=== PATIENT | male | born 1975 | race Caucasian/White ===

== ENCOUNTER 2017-12-13 06:27 | Emergency (ER) | payer BC ==
[2017-12-13 06:34] VITALS: BP 128/91
[2017-12-13] MEDS ORDERED: Proparacaine 0.5% Ophth Soln 15 ML Bottle EYERT ONE (07:12)
--- NOTE | 2017-12-13 07:34 | EDM.PDOC ---
ED HPI GENERAL MEDICAL PROBLEM - General Chief Complaint: Eye Problems Stated Complaint: eye problem Time Seen by Provider: 12/13/17 06:32 Source of Information: Reports: Patient, RN Notes Reviewed - History of Present Illness INITIAL COMMENTS - FREE TEXT/NARRATIVE: onset of R severe eye discomfort last evening about 12 hours ago, continued severe pain during the night and this morning, a lot of tearing but no crusting or drainge. He does wear contacts. 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 Treatments MEDICAL ORDERLY: Reports: Other (see below) Other Treatments MEDICAL ORDERLY: eye flushes Right Eye Pain Score (Numeric/FACES): 5 - Related Data Allergies Allergy/AdvReac Type Severity Reaction Status Date / Time Penicillins Allergy Cannot Verified 12/13/17 06:35 Remember Home Meds: Home Meds . [No Known Home Meds] 07/26/15 [History] Past Medical History - Past Health History Medical/Surgical History: Denies Medical/Surgical History Social & Family History - Family History Family Medical History: Noncontributory - Tobacco Use Smoking Status *Q: Current Every Day Smoker Years of Tobacco use: 15 Packs/Tins Daily: 1 - Recreational Drug Use Recreational Drug Use: No ED ROS GENERAL - Review of Systems Review Of Systems: See Below Constitutional: Denies: Fever, Chills HEENT: Reports: Contact Lenses, Eye Pain (Right-sided), Other (Right conjunctival injection, pain, foreign body sensation) Respiratory: Denies: Shortness of Breath Cardiovascular: Denies: Chest Pain GI/Abdominal: Denies: Abdominal Pain, Nausea, Vomiting Musculoskeletal: Reports: No Symptoms Skin: Reports: No Symptoms Neurological: Reports: No Symptoms. Denies: Headache ED EXAM GENERAL W FULL EYE - Physical Exam Exam: See Below General Appearance: Alert, Mild Distress Conjunctiva & Sclera: Right: Injected Cornea Exam: Right: Corneal Ulcer (Small left upper area of right cornea), Bilateral: Other (Cornea otherwise clear) Head: No: Facial Swelling Neck: Supple Respiratory/Chest: No Respiratory Distress Neurological: Alert, Oriented, No Motor/Sensory Deficits Skin Exam: Warm, Dry, Normal Color, No Rash Course - Vital Signs Last Recorded V/S: Last Vital Signs Temp 97.6 F 12/13/17 06:32 Pulse 79 12/13/17 06:32 Resp 16 12/13/17 06:32 BP 128/91 H 12/13/17 06:32 Pulse Ox 98 12/13/17 06:32 - Orders/Labs/Meds Meds: Medications Discontinued Medications Generic Name Dose Route Start Last Admin Trade Name Raheem PRN Reason Stop Dose Admin Proparacaine HCl 0.25 ml 12/13/17 07:12 12/13/17 07:12 Proparacaine 0.5% Ophth Soln EYERT 12/13/17 07:13 0.25 ml ONETIME ONE Administration Departure - Departure Time of Disposition: 07:32 Disposition: Home, Self-Care 01 Condition: Fair Clinical Impression: Corneal ulcer Qualifiers: Laterality: right Qualified Code(s): H16.001 - Unspecified corneal ulcer, right eye - Discharge Information Instructions: Corneal Ulcer Referrals: PCP,None [Primary Care Provider] - Forms: ED Department Discharge Additional Instructions: cipro opthalmic eye drops, 2 drops R eye 3 times daily, aleve 2 to 3 times daily, tylenol in between doses if needed for extra pain relief, do not wear contacts until cleared to do so by your Feeder Operator, see your eye Friday for recheck, return to ED as needed.
== END 2017-12-13 07:39 | disposition home or self-care (01) ==
LOC: JD.ED 06:27
DX: H16.001 Unspecified corneal ulcer, right eye (principal); F17.210 Nicotine dependence, cigarettes, uncomplicated; Z88.0 Allergy status to penicillin
CPT/HCPCS: 99283

== ENCOUNTER 2019-05-31 20:56 | Emergency (ER) | payer BC ==
[2019-05-31 21:05] VITALS: BP 147/103
[2019-05-31] MEDS ORDERED: Clindamycin Phosphate 300 MG/2 ML SDV IM ONE (22:25)
[2019-05-31] MEDS ORDERED: Clindamycin HCl 150 MG Cap PO ONE (22:26)
[2019-05-31] MEDS ORDERED: Acetaminophen/oxyCODONE 325-5 MG Tab PO ONE (22:26)
--- NOTE | 2019-05-31 22:31 | EDM.PDOC ---
ED HPI GENERAL MEDICAL PROBLEM - General Chief Complaint: ENT Problem Stated Complaint: HARD TIME SWALLOWING Time Seen by Provider: 05/31/19 21:19 Source of Information: Reports: Patient History Limitations: Reports: No Limitations - History of Present Illness INITIAL COMMENTS - FREE TEXT/NARRATIVE: Patient is a 44-year-old male presents ED complaining of right-sided lower jaw pain with swelling to his right cheek and pain along the right tonsillar region with pain with swallowing. Patient states she developed a toothache to the right lower jawline where he has a tooth that is in poor shape. States he made appointment with the dentist for this coming Friday. Upon returning home from work approximate 45 minutes prior to arrival he started developing some pain to the right side of his neck with swallowing. He is able control his secretions. He does not want to swallow since it hurts. There is no airway compromise. Denies any fever, chest pain, headache, ear pain, shortness of breath, nausea vomiting, or any additional complaints. 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 Right Tooth/Teeth Pain Score (Numeric/FACES): 9 - Related Data Allergies Allergy/AdvReac Type Severity Reaction Status Date / Time Penicillins Allergy Cannot Verified 05/31/19 21:05 Remember Home Meds: Home Meds Acetaminophen/oxyCODONE [Percocet 325-5 MG] 1 each PO Q6HR PRN #15 tab 05/31/19 [Rx] Clindamycin HCl 300 mg PO TID #30 capsule 05/31/19 [Rx] Past Medical History - Past Health History Medical/Surgical History: Denies Medical/Surgical History Social & Family History - Family History Family Medical History: Noncontributory - Tobacco Use Smoking Status *Q: Current Every Day Smoker Years of Tobacco use: 12 Packs/Tins Daily: 1 - Caffeine Use Caffeine Use: Reports: Coffee, Soda - Recreational Drug Use Recreational Drug Use: No ED ROS ENT - Review of Systems Review Of Systems: ROS reveals no pertinent complaints other than HPI. ED EXAM, ENT - Physical Exam Exam: See Below Exam Limited By: No Limitations General Appearance: Alert, WD/WN, No Apparent Distress, Other (Spitting into a cup. No drooling present. Able to swallow but due to the pain does not want to.) Eye Exam: Bilateral Eye: Normal Inspection, PERRL Ears: Normal External Exam, Normal Canal, Hearing Grossly Normal, Normal TMs Nose: Normal Inspection, Normal Mucousa, No Blood Mouth/Throat: Dental Pain (#32 tooth), Throat Pain (Per patient), Tonsillar Swelling (Slight swelling noted to the right tonsil. No uvula deviation. No voice changes. Able to swallow although painful.), Other (Swelling noted to the right jawline cheek region with slight tenderness noted with palpation. No redness or increased warmth noted. No open sores present.). No: Peritonsillar Mass (Noted), Pharyngeal Erythema, Tongue Swelling, Tonsillar Erythema, Tonsillar Exudates, Uvular Deviation, Uvular Edema Head: Atraumatic, Normocephalic, Facial Swelling, Facial Tenderness Neck: Normal Inspection, Supple, Other (Tenderness noted along the right tonsillar region with no lymphadenopathy noted.). No: Lymphadenopathy (L), Lymphadenopathy (R) Respiratory/Chest: No Respiratory Distress, Lungs Clear, Normal Breath Sounds, No Accessory Muscle Use, Chest Non-Tender Cardiovascular: Normal Peripheral Pulses, Regular Rate, Rhythm, No Murmur Neurological: Alert, Oriented, CN II-XII Intact, Normal Cognition, No Motor/ Sensory Deficits Psychiatric: Normal Affect, Normal Mood Skin: Warm, Dry, Intact, Normal Color, No Rash Course - Vital Signs Last Recorded V/S: Last Vital Signs Temp 98.2 F 05/31/19 21:01 Pulse 85 05/31/19 21:01 Resp 18 05/31/19 21:01 BP 147/103 H 05/31/19 21:01 Pulse Ox 98 05/31/19 21:01 - Orders/Labs/Meds Meds: Medications Discontinued Medications Generic Name Dose Route Start Last Admin Trade Name Raheem PRN Reason Stop Dose Admin Clindamycin HCl 450 mg 05/31/19 22:26 05/31/19 22:36 Cleocin PO 05/31/19 22:27 450 mg ONETIME ONE Administration Clindamycin Phosphate 600 mg 05/31/19 22:25 05/31/19 22:36 Cleocin IM 05/31/19 22:26 600 mg ONETIME ONE Administration Oxycodone/Acetaminophen 1 tab 05/31/19 22:26 05/31/19 22:36 Percocet 325-5 Mg PO 05/31/19 22:27 1 tab ONETIME ONE Administration - Re-Assessments/Exams Free Text/Narrative Re-Assessment/Exam: On exam patient has dental pain noted to #32 tooth. Portions of the tooth are missing. Multiple fillings present. No gumline swelling although there is tenderness along the lateral aspect of the gumline. No open lesion or drainage noted. Slight swelling noted to the right tonsil region but no uvula deviation. No exudates noted. No change in phonation. Able to control his secretions. On examination of the neck and the face there is swelling noted to the right cheek along the mandible region and tenderness noted. Pain along the right tonsillar region with no lymphadenopathy. I have offered to obtain labs and also CT of the neck to evaluate for abscess. Patient refuses since he has a appointment with a dentist for this Friday. Ordered clindamycin 600 mg IM with clindamycin 450mg PO. Ordered percocet 5-325mg PO x 1. Return precautions were discussed with the patient. Patient had no further questions or concerns and agreed with plan. Discharge instructions as documented. Departure - Departure Time of Disposition: 22:31 Disposition: Home, Self-Care 01 Condition: Good Clinical Impression: Infected dental caries, Tonsil pain, Dental infection - Discharge Information Prescriptions: Acetaminophen/oxyCODONE [Percocet 325-5 MG] 1 each PO Q6HR PRN #15 tab PRN Reason: Pain (Severe 7-10) Clindamycin HCl 300 mg PO TID #30 capsule Instructions: Tonsillitis, [id number], Dental Abscess, [id number] Referrals: PCP,None [Primary Care Provider] - Forms: ED Department Discharge, ED Return to Work/School Form Additional Instructions: Keep appointment with dentist as scheduled for this week. Take the clindamycin as prescribed. Suggest taken any [id number] probiotic for the next month. In addition for pain utilize ibuprofen 600 mg every 6 hours when necessary for [id number] pain. For severe pain use the Percocet as prescribed. No driving this evening since receiving a sedative medication. No driving while taking the Percocet. Please return to the ED if you develop any new or worsening symptoms as discussed.
== END 2019-05-31 22:46 | disposition home or self-care (01) ==
LOC: JD.ED 20:56
DX: K04.7 Periapical abscess without sinus (principal); K02.9 Dental caries, unspecified; J03.90 Acute tonsillitis, unspecified; F17.210 Nicotine dependence, cigarettes, uncomplicated; Z88.0 Allergy status to penicillin
CPT/HCPCS: 96372; 99283; A9270; J3490

== ENCOUNTER 2020-07-26 06:17 | Emergency (ER) | payer BC ==
[2020-07-26 06:35] VITALS: BP 155/107; PULSE 88
[2020-07-26] MEDS ORDERED: Sodium Chloride 0.9% 10 ML Syringe FLUSH PRN (06:48)
[2020-07-26] MEDS ORDERED: Ondansetron 4 MG/2 ML SDV IVPUSH ONE (06:49)
[2020-07-26] MEDS ORDERED: HYDROmorphone 1 MG/ML Syringe IVPUSH ONE (06:49)
[2020-07-26] MEDS ORDERED: Sodium Chloride 0.9% 1,000 ML IV SCH (07:00)
--- NOTE | 2020-07-26 07:04 | EDM.PDOC ---
<Osvaldo Toure L - Last Filed: 07/26/20 07:40> ED HPI GENERAL MEDICAL PROBLEM - General Chief Complaint: Flank Pain Stated Complaint: LEFT FLANK PAIN Time Seen by Provider: 07/26/20 06:40 Source of Information: Reports: Patient, RN Notes Reviewed - History of Present Illness INITIAL COMMENTS - FREE TEXT/NARRATIVE: 45 yr old male comes in with L flank pain. This started 2 days ago, worse last evening and today. Pain has been in L back and radiating into L groin. Some nausea, no vomiting. No fever, chills or voiding sx. Hx of stones. Left Flank Pain Score (Numeric/FACES): 8 - Related Data Allergies Allergy/AdvReac Type Severity Reaction Status Date / Time Penicillins Allergy Cannot Verified 07/26/20 06:35 Remember Home Meds: Home Meds Hydrocodone/Acetaminophen [Hydrocodone-Acetamin 5-325 mg] 1 - 2 each PO Q6HR PRN #20 tablet 07/26/20 [Rx] Tamsulosin HCl [Flomax] 0.4 mg PO DAILY #7 cap.er.24h 07/26/20 [Rx] Past Medical History - Past Health History Medical/Surgical History: Denies Medical/Surgical History Genitourinary History: Reports: Renal Calculus - Past Surgical History Male Surgical History: Reports: Lithotripsy (ESWL) Social & Family History - Family History Family Medical History: Noncontributory - Tobacco Use Smoking Status *Q: Former Smoker Used Tobacco, but Quit: Yes Month/Year Tobacco Last Used: 2019 - Caffeine Use Caffeine Use: Reports: Soda - Recreational Drug Use Recreational Drug Use: No ED ROS GENERAL - Review of Systems Review Of Systems: See Below Constitutional: Denies: Fever, Chills, Diaphoresis HEENT: Reports: No Symptoms Respiratory: Reports: No Symptoms Cardiovascular: Denies: Chest Pain GI/Abdominal: Reports: Abdominal Pain (L lower abd) : Denies: Dysuria, Frequency, Hematuria, Urgency Musculoskeletal: Reports: Back Pain Skin: Reports: No Symptoms Neurological: Reports: No Symptoms ED EXAM, RENAL/ - Physical Exam Exam: See Below General Appearance: Alert, Moderate Distress Throat/Mouth: Normal Inspection, Normal Oropharynx Head: Atraumatic Neck: Supple Respiratory/Chest: No Respiratory Distress, Lungs Clear, Normal Breath Sounds Cardiovascular: Regular Rate, Rhythm GI/Abdominal: Soft, Non-Tender Back Exam: CVA Tenderness (L) Extremities: Normal Inspection, Normal Range of Motion Neurological: Alert, Oriented, No Motor/Sensory Deficits Skin Exam: Warm, Dry, Normal Color Course - Re-Assessments/Exams Free Text/Narrative Re-Assessment/Exam: 07/26/20 07:40. change of shift, stone strongly suspected on the left. Will transfer care to Dr Michelle. Departure - Departure Disposition: Home, Self-Care 01 Clinical Impression: Kidney stone on left side, Ureteral colic, Ureteral calculus, left - Discharge Information Prescriptions: Tamsulosin HCl [Flomax] 0.4 mg PO DAILY #7 cap.er.24h Hydrocodone/Acetaminophen [Hydrocodone-Acetamin 5-325 mg] 1 - 2 each PO Q6HR PRN #20 tablet PRN Reason: Pain Referrals: PCP,None [Primary Care Provider] - Forms: ED Department Discharge Additional Instructions: Drink plenty of fluids. Take flomax daily. Take motrin or tylenol for pain. If that does not help try the hydrocodone. Please return if you are worse. Sepsis Event Note (ED) - Evaluation Sepsis Screening Result: No Definite Risk <Sanchez Michelle - Last Filed: 07/26/20 08:29> Course - Vital Signs Last Recorded V/S: Last Vital Signs Temp 97.8 F 07/26/20 06:31 Pulse 88 07/26/20 06:31 Resp 16 07/26/20 06:31 BP 155/107 H 07/26/20 06:31 Pulse Ox 97 07/26/20 06:31 - Orders/Labs/Meds Orders: Active Orders 24 hr Category Date Time Status Peripheral IV Care [RC] . DIRECTED Care 07/26/20 06:48 Active Sodium Chloride 0.9% [Normal Saline] 1,000 ml Med 07/26/20 07:00 Active IV ASDIRECTED Sodium Chloride 0.9% [Saline Flush] Med 07/26/20 06:48 Active 10 ml FLUSH ASDIRECTED PRN Peripheral IV Insertion Adult [OM.PC] Stat Oth 07/26/20 06:48 Ordered Medication Orders Sodium Chloride (Normal Saline) 1,000 mls @ 150 mls/hr IV ASDIRECTED JUJU Last Admin: 07/26/20 07:13 Dose: 150 mls/hr Documented by: STACIE Sodium Chloride (Saline Flush) 10 ml FLUSH ASDIRECTED PRN PRN Reason: Keep Vein Open Last Admin: 07/26/20 07:13 Dose: 10 ml Documented by: STACIE Labs: Laboratory Tests 07/26/20 Range/Units 07:50 Urine Color Yellow (Yellow) Urine Appearance Cloudy H (Clear) Urine pH 6.0 (5.0-8.0) Ur Specific [place] > or = 1.030 (1.005-1.030) Urine Protein 2+ H (Negative) Urine Glucose (UA) Negative (Negative) Urine Ketones Negative (Negative) Urine Occult Blood 3+ H (Negative) Urine Nitrite Negative (Negative) Urine Bilirubin Negative (Negative) Urine Urobilinogen 0.2 (0.2-1.0) Ur Leukocyte Esterase Negative (Negative) Urine RBC Too numerous to cnt H (0-5) /hpf Urine WBC 0-5 (0-5) /hpf Ur Squamous Epith Cells 0-5 (0-5) /hpf Urine Bacteria Few (FEW) /hpf Urine Mucus Not seen (FEW) /hpf Meds: Medications Generic Name Dose Route Start Last Admin Trade Name Freq PRN Reason Stop Dose Admin Sodium Chloride 1,000 mls @ 150 mls/hr 07/26/20 07:00 07/26/20 07:13 Normal Saline IV 150 mls/hr ASDIRECTED JUJU Administration Sodium Chloride 10 ml 07/26/20 06:48 07/26/20 07:13 Saline Flush FLUSH 10 ml ASDIRECTED PRN Administration Keep Vein Open Discontinued Medications Generic Name Dose Route Start Last Admin Trade Name Freq PRN Reason Stop Dose Admin Hydromorphone HCl 1 mg 07/26/20 06:49 07/26/20 07:14 Dilaudid IVPUSH 07/26/20 06:50 1 mg ONETIME ONE Administration Ondansetron HCl 4 mg 07/26/20 06:49 07/26/20 07:14 Zofran IVPUSH 07/26/20 06:50 4 mg ONETIME ONE Administration - Re-Assessments/Exams Free Text/Narrative Re-Assessment/Exam: 07/26/20 08:[address] Toure. The CT shows dilated left ureter with mild surrounding inflammatory change which is caused by a 3mm stone located within the distal left ureter at the UVJ. Small nonobstructing calculus within the lower pole of each kidney. Other findings believed to be nonacute. His UA shows blood but no UTI. I will get him on flomax and some hydrocodone for pain. I will also give him a strainer. Departure - Departure Time of Disposition: 08:30 Condition: Good - Discharge Information *PRESCRIPTION DRUG MONITORING PROGRAM REVIEWED*: Not Applicable *COPY OF PRESCRIPTION DRUG MONITORING REPORT IN PATIENT ОЛЕГ: Not Applicable Sepsis Event Note (ED) - Focused Exam Vital Signs: Vital Signs Temp Pulse Resp BP Pulse Ox 07/26/20 06:31 97.8 F 88 16 155/107 H 97
--- NOTE | 2020-07-26 07:55 | CT ---
CT abdomen and pelvis Technique: Multiple axial sections were obtained from above the dome of the diaphragm inferiorly through the pubic symphysis. Intravenous and oral contrast not utilized. Reconstructed coronal and sagittal images were obtained. Study performed as a ureteral stone protocol. Findings: Left ureter is dilated and also shows mild surrounding inflammatory change. These findings are caused by an obstructing distal left ureteral stone measuring about 3.0 mm. The stone is located next to the UVJ. No other abnormal calcifications are seen along the course of the ureters. Small nonobstructing calculus is noted within the lower pole of each kidney. Other findings: Visualized lung bases show nothing acute. Diffuse fatty infiltration is identified within the liver. Spleen appears within normal limits. Adrenal glands show no nodule. Pancreas is within normal limits. Aorta shows no aneurysm. No retroperitoneal adenopathy or mesenteric abnormalities are seen. Appendix is seen which is normal. No pelvic mass or adenopathy is identified. No free fluid or inflammatory change is appreciated. Bone window settings were reviewed which shows mild degenerative change scattered within the spine. Most prominent finding at L2-3 with large posterior spurs. Impression: 1. Dilated left ureter with mild surrounding inflammatory change which is caused by a 3.0 mm stone located within the distal left ureter at the UVJ. 2. Small nonobstructing calculus within the lower pole of each kidney. 3. Other findings believed to be nonacute as described above. Diagnostic code #3 This report was dictated in MDT
== END 2020-07-26 08:40 | disposition home or self-care (01) ==
LOC: JD.ED 06:17
DX: N20.2 Calculus of kidney with calculus of ureter (principal); Z88.0 Allergy status to penicillin; Z79.899 Other long term (current) drug therapy; Z87.891 Personal history of nicotine dependence
CPT/HCPCS: 74176; 81001; 96374; 96375; 99284; J1170; J2405; J7030

== ENCOUNTER 2021-09-03 01:45 | Emergency (ER) | payer BC ==
[2021-09-03 02:00] VITALS: BP 166/92; PULSE 81
[2021-09-03] MEDS ORDERED: Ketorolac 60 MG/2 ML SDV IM ONE (02:08)
[2021-09-03] MEDS ORDERED: HYDROmorphone 1 MG/ML Syringe IM ONE (02:08)
--- NOTE | 2021-09-03 02:54 | EDM.PDOC ---
ED HPI GENERAL MEDICAL PROBLEM - General Chief Complaint: Genitourinary Problem Stated Complaint: TESTICULAR PAIN Time Seen by Provider: 09/03/21 01:54 Source of Information: Reports: Patient History Limitations: Reports: No Limitations - History of Present Illness INITIAL COMMENTS - FREE TEXT/NARRATIVE: The patient presents with left testicle pain. He wears a harness for work and sometimes his testicles get caught. This happened a couple days ago. He had some blood in his urine right after but that has cleared up. He said the pain did get better. Today he went for a motorcycle ride and the pain got worse tonight. He has no nausea or vomiting. He has no pain with urination. Onset: Sudden Duration: Day(s): Location: Reports: Other (left testicle) Quality: Reports: Sharp Severity: Severe Improves with: Reports: None Worsens with: Reports: None Associated Symptoms: Reports: No Other Symptoms Left Scrotum Pain Score (Numeric/FACES): 8 - Related Data Allergies Allergy/AdvReac Type Severity Reaction Status Date / Time Penicillins Allergy Severe Cannot Verified 09/03/21 01:59 Remember Home Meds: Home Meds . [No Known Home Meds] 09/03/21 [History] Past Medical History - Past Health History Medical/Surgical History: Denies Medical/Surgical History Genitourinary History: Reports: Renal Calculus - Past Surgical History Male Surgical History: Reports: Lithotripsy (ESWL) Social & Family History - Family History Family Medical History: No Pertinent Family History - Tobacco Use Tobacco Use Status *Q: Former Tobacco User Used Tobacco, but Quit: Yes Month/Year Tobacco Last Used: 2 years ago - Caffeine Use Caffeine Use: Reports: Soda - Recreational Drug Use Recreational Drug Use: No ED ROS GENERAL - Review of Systems Review Of Systems: See Below Constitutional: Reports: No Symptoms HEENT: Reports: No Symptoms Respiratory: Reports: No Symptoms Cardiovascular: Reports: No Symptoms Endocrine: Reports: No Symptoms GI/Abdominal: Reports: No Symptoms : Reports: Other (left testicle pain) Musculoskeletal: Reports: No Symptoms Skin: Reports: No Symptoms ED EXAM, RENAL/ - Physical Exam Exam: See Below Exam Limited By: No Limitations General Appearance: Alert, No Apparent Distress Ears: Normal External Exam Nose: Normal Inspection Head: Atraumatic, Normocephalic Neck: Normal Inspection Respiratory/Chest: No Respiratory Distress, Lungs Clear, Normal Breath Sounds Cardiovascular: Regular Rate, Rhythm, No Edema, No Murmur GI/Abdominal: Soft, Non-Tender, No Organomegaly, No Mass (Male) Exam: Other (pain upon palpation to the left testicle. No drainage or rashes.) Course - Vital Signs Last Recorded V/S: Last Vital Signs Temp 97 F 09/03/21 01:57 Pulse 81 09/03/21 01:57 Resp 16 09/03/21 01:57 BP 166/92 H 09/03/21 01:57 Pulse Ox 98 09/03/21 01:57 - Orders/Labs/Meds Orders: Active Orders 24 hr Category Date Time Status Scrotum and Contents [US] Stat Exams 09/03/21 02:08 Taken UA RFX SUMAN AND CULT IF INDIC [URIN] Stat Lab 09/03/21 02:07 Ordered Meds: Medications Discontinued Medications Generic Name Dose Route Start Last Admin Trade Name Freq PRN Reason Stop Dose Admin Hydromorphone HCl 1 mg 09/03/21 02:08 09/03/21 02:15 Hydromorphone 1 Mg/Ml Syringe IM 09/03/21 02:09 1 mg ONETIME ONE Administration Ketorolac Tromethamine 60 mg 09/03/21 02:08 09/03/21 02:15 Ketorolac 60 Mg/2 Ml Sdv IM 09/03/21 02:09 60 mg ONETIME ONE Administration - Re-Assessments/Exams Free Text/Narrative Re-Assessment/Exam: 09/03/21 02:53 I ordered an US of his scrotum and an UA. I also ordered dilaudid 1mg IM and toradol 60mg IM. 09/03/21 04:01 The US shows no acute findings. I will discharge him home with something for pain. Departure - Departure Time of Disposition: 04:05 Disposition: Home, Self-Care 01 Condition: Good Clinical Impression: Contusion of testicle Qualifiers: Encounter type: initial encounter Qualified Code(s): S30.22XA - Contusion of scrotum and testes, initial encounter - Discharge Information *PRESCRIPTION DRUG MONITORING PROGRAM REVIEWED*: Not Applicable *COPY OF PRESCRIPTION DRUG MONITORING REPORT IN PATIENT ОЛЕГ: Not Applicable Referrals: PCP,None [Primary Care Provider] - Shady Oconnor MD [Ordering Only Provider] - 1 Week Forms: ED Department Discharge Additional Instructions: Take tylenol or motrin for pain. If that does not work, try the hydrocodone. Try some ice for 15 minutes 3 times per day for 2 days. If the pain does not get better, follow up with Dr Oconnor a urologist in [place] or one of his partners. Sepsis Event Note (ED) - Evaluation Sepsis Screening Result: No Definite Risk - Focused Exam Vital Signs: Vital Signs Temp Pulse Resp BP Pulse Ox 09/03/21 01:57 97 F 81 16 166/92 H 98 - My Orders Last 24 Hours: My Active Orders 09/03/21 02:07 UA RFX SUMAN AND CULT IF INDIC [URIN] Stat 09/03/21 02:08 Scrotum and Contents [US] Stat - Assessment/Plan Last 24 Hours: My Active Orders 09/03/21 02:07 UA RFX SUMAN AND CULT IF INDIC [URIN] Stat 09/03/21 02:08 Scrotum and Contents [US] Stat
--- NOTE | 2021-09-03 08:00 | US ---
Testicular ultrasound: Multiple real-time images were obtained of both testicles. Comparison: No prior testicular ultrasound is available. Testicles have a homogeneous ultrasound appearance. Arterial and venous blood flow are seen within both testicles. Small cyst is noted within the left epididymis measuring 4 mm. Right epididymis is not well seen. No hydrocele is seen. Measurements: Right testicle: 4.5 x 2.5 x 3.5 cm Left testicle: 3.9 x 2.8 x 2.7 cm Impression: 1. 4 mm epididymal cyst on the left side. 2. Right epididymis is not well seen. 3. Other portions of the testicular ultrasound exam appear unremarkable. Diagnostic code #2 I agree with preliminary report from [facility] finalized on 09/03/21, 4:46 AM CDT, code 1
== END 2021-09-03 04:11 | disposition home or self-care (01) ==
LOC: JD.ED 01:45
DX: S30.22XA Contusion of scrotum and testes, initial encounter (principal); Z87.891 Personal history of nicotine dependence; Z88.0 Allergy status to penicillin; X58.XXXA Exposure to other specified factors, initial encounter
CPT/HCPCS: 76870; 93975; 96372; 99284; J1170; J1885

== ENCOUNTER 2023-06-24 18:28 | Emergency (ER) | payer BC ==
[2023-06-24] MEDS ORDERED: Ondansetron 4 MG/2 ML SDV IVPUSH ONE (18:59)
[2023-06-24] MEDS ORDERED: HYDROmorphone 0.5 MG/0.5 ML Syringe IVPUSH ONE (18:59)
[2023-06-24] MEDS ORDERED: Sodium Chloride 0.9% 1,000 ML IV STA (18:59)
[2023-06-24] MEDS ORDERED: Sodium Chloride 0.9% 10 ML Syringe FLUSH PRN (18:59)
[2023-06-24 19:35] LABS: BASOPHILS ABSOLUTE AUTO 0.06 K/mm3 (0.01-0.08); BASOPHILS PERCENT AUTO 0.5 % (0.1-1.2); EOSINOPHILS PERCENT AUTO 5.7 (0.8-7.0); HEMATOCRIT 44.1 % (40.1-51.0); HEMOGLOBIN 15.1 gm/dl (13.7-17.5); IMMATURE GRAN ABSOLUTE AUTO 0.05 K/mm3 (0.00-0.10); IMMATURE GRAN PERCENT AUTO 0.4 % (<=1.0); LYMPHOCYTES ABSOLUTE AUTO 3.25 K/mm3 (1.32-3.57); LYMPHOCYTES PERCENT AUTO 26.6 % (21.8-53.1); MEAN CORPUSCULAR HGB CONC 34.2 g/dl (32.2-35.5); MEAN CORPUSCULAR VOLUME 84.6 fl (79.0-92.2); MEAN PLATELET VOLUME 9.2 fl (9.4-12.3); MONOCYTES ABSOLUTE AUTO 0.91 K/mm3 (0.30-0.82); MONOCYTES PERCENT AUTO 7.4 % (5.3-12.2); NEUTROPHILS ABSOLUTE AUTO 7.27 K/mm3 (1.78-5.38); NEUTROPHILS PERCENT AUTO 59.4 % (34.0-67.9); PLATELET COUNT,PLT 295 K/mm3 (163-337); RED BLOOD CELL COUNT 5.21 M/mm3 (4.63-6.08); WHITE BLOOD CELL COUNT,WBC 12.24 K/mm3 (4.23-9.07)
[2023-06-24 19:58] LABS: A/G RATIO 1.1 (1-2); ALBUMIN 3.8 g/dl (3.4-5.0); ANION GAP 11.2 (5-15); BILIRUBIN TOTAL 0.5 mg/dL (0.2-1.0); BUN/CREATININE RATIO 13.3 (14-18); C-REACTIVE PROTEIN 0.6 mg/dL (<1.0); CALCIUM 9.7 mg/dL (8.5-10.1); CREATININE 1.2 mg/dL (0.7-1.3); EST CRCL DRUG DOSING (CG) 67.94 mL/min; POTASSIUM,K 4.2 mEq/L (3.5-5.1); PROTEIN TOTAL,TP 7.4 g/dl (6.4-8.2)
[2023-06-24] MEDS ORDERED: Tamsulosin 0.4 MG Cap.ER PO ONE (20:03)
[2023-06-24] MEDS ORDERED: Ketorolac 30 MG/ML SDV IVPUSH ONE (20:03)
[2023-06-24 21:10] LABS: APPEARANCE,URINE CLOUDY (Clear); BILIRUBIN,URINE NEGATIVE (Negative); COLOR,URINE DARK YELLOW (Yellow); GLUCOSE,URINE NEGATIVE (Negative); KETONES,URINE NEGATIVE (Negative); LEUKOCYTE ESTERASE,URINE NEGATIVE (Negative); NITRITE,URINE NEGATIVE (Negative); OCCULT BLOOD,URINE 3+ (Negative); PH,URINE 5.5 (5.0-8.0); PROTEIN,URINE 1+ (Negative)
[2023-06-24 21:37] LABS: BACTERIA,URINE FEW /hpf (FEW); MUCUS,URINE FEW /hpf (FEW); RBC,URINE >100 /hpf (0-5); SQUAMOUS EPITHELIAL CELLS,UR 0-5 /hpf (0-5); WBC,URINE 0-5 /hpf (0-5)
[2023-06-25 02:12] VITALS: BP 132/87; PULSE 88
== END 2023-06-24 22:30 | disposition home or self-care (01) ==
LOC: JD.ED 18:28
DX: N13.2 Hydronephrosis with renal and ureteral calculous obstruction (principal); Z88.0 Allergy status to penicillin; Z87.891 Personal history of nicotine dependence
CPT/HCPCS: 36415; 74176; 80053; 81001; 85025; 86140; 96374; 96375; 99284; A9270; J1170; J1885; J2405; J3490; J7030